=== PATIENT | female | born 1980 | race Caucasian/White ===

== ENCOUNTER 2023-01-23 17:12 | Emergency (ER) | payer MEDICARE, OTHER ==
[2023-01-23 17:36] LABS: Basophils % (A) 1 %; Eosinophils % (A) 1 %; HCT 42.7 % (34.0-46.0); HGB 13.9 gm/dL (11.4-16.0); Lymphocytes # (A) 2.5 k/uL (1.0-4.8); Lymphocytes % (A) 34 %; MCH 31.5 pg (25.0-35.0); MCHC 32.5 g/dL (31.0-37.0); Mean Platelet Volume 7.5; Monocytes # (A) 0.5 k/uL (0-1.0); Monocytes % (A) 7 %; Neutrophils % (A) 55 %; Platelet Count 246 k/uL (150-450); RDW 12.4 % (11.5-15.5); WBC 7.2 k/uL (3.8-10.6)
[2023-01-23 17:45] LABS: Appearance,Urine Clear (Clear); Bilirubin,Urine Negative (Negative); Blood,Urine Negative (Negative); Glucose,Urine (UA) Negative (Negative); Ketones,Urine 2+ (Negative); Leukocyte Esterase,Urine Negative (Negative); Mucus,Urine Many /hpf; Nitrite,Urine Negative (Negative); Protein,Urine 1+ (Negative); RBC,Urine 2 /hpf (0-5); Squamous Epithelial Cell,Urine 1 /hpf (0-4); WBC,Urine 1 /hpf (0-5)
[2023-01-23 17:47] LABS: Color,Urine Yellow
[2023-01-23 17:50] LABS: ALT 21 U/L (4-34); AST 28 U/L (14-36); African American GFR (CKD) >90 (>60 ml/min/1.73 sqM); Albumin 4.3 g/dL (3.5-5.0); Alkaline Phosphatase 86 U/L (38-126); Anion Gap 10 mmol/L; Blood Urea Nitrogen 28 mg/dL (7-17); Calcium 9.8 mg/dL (8.4-10.2); Carbon Dioxide 26 mmol/L (22-30); Chloride 111 mmol/L (98-107); Glucose 125 mg/dL (74-99); Non-African American GFR(CKD) >90 (>60 ml/min/1.73 sqM); Potassium 4.7 mmol/L (3.5-5.1); Sodium 147 mmol/L (137-145); Total Bilirubin 0.5 mg/dL (0.2-1.3); Total Protein 7.8 g/dL (6.3-8.2)
[2023-01-23 18:37] LABS: Carbamazepine (Tegretol) 3.4 ug/mL
[2023-01-23 18:39] LABS: Valproic Acid (Depakene) 45.7 ug/mL
--- NOTE | 2023-01-23 18:52 | CT ---
EXAMINATION TYPE: CT brain wo con DATE OF EXAM: 01/23/2023 COMPARISON: None. HISTORY: increased AMS CT DLP: 2243.2 mGycm. Automated Exposure Control for Dose Reduction was Utilized. TECHNIQUE: CT scan of the head is performed without contrast. FINDINGS: There is no acute intracranial hemorrhage, mass effect, or midline shift identified. The ventricles and sulci are within normal limits in size. Pineda-white matter differentiation is maintai karina The globes are intact and the visualized sinuses are clear. IMPRESSION: No acute intracranial hemorrhage, mass effect, or midline shift is seen. Unremarkable st udy.
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
[2023-01-23] MEDS ORDERED: NON FORMULARY DRUG (Midazolam [Nayzilam] 5 MG/0.1 ML Each) MISCELLANE PRN (21:24)
[2023-01-24] MEDS ORDERED: LORazepam 2 MG/ML INJ IV STA (05:57)
[2023-01-24] MEDS ORDERED: OLANZapine 10 MG TAB PO SCH (07:00)
[2023-01-24] MEDS ORDERED: LEVOTHYROXINE 50 MCG TAB PO SCH (07:00)
[2023-01-24] MEDS ORDERED: QUEtiapine 100 MG TAB PO SCH ×2 (07:00→20:00)
[2023-01-24] MEDS ORDERED: DIVALPROEX 500 MG TABLET.DR PO SCH ×2 (07:00→20:00)
[2023-01-24] MEDS ORDERED: clonazePAM 0.5 MG TAB PO SCH (07:00)
[2023-01-24] MEDS ORDERED: SERTRALINE 100 MG TAB PO SCH (07:00)
[2023-01-24] MEDS ORDERED: carBAMazepine 400 MG TAB.ER.12H PO SCH (07:00)
[2023-01-24] MEDS ORDERED: carBAMazepine 100 MG TAB.ER.12H PO SCH (07:00)
[2023-01-24] MEDS ORDERED: PANTOPRAZOLE 40 MG TABLET PO SCH (07:30)
[2023-01-24 13:04] VITALS: RESP 16
[2023-01-24 15:00] VITALS: BP 130/68; PULSE 76; TEMP 98
[2023-01-24] MEDS ORDERED: MELATONIN 3 MG TABLET PO SCH (20:00)
== END 2023-01-24 15:01 | disposition home or self-care (01) ==
LOC: SUPCPDRO 17:12 → EC 17:12 → EEVIPCON 17:12 → EC 01-24 15:01
DX: R41.82 Altered mental status, unspecified (principal)
CPT/HCPCS: 82075; 36415; 80156; 80164; 80053; 84443; 85025; 81001; 81025; 70450; 99285; 96374; J2060

== ENCOUNTER 2023-03-18 23:02 | Emergency (ER) | payer MEDICARE, OTHER ==
[2023-03-18 23:24] VITALS: BP 112/78; PULSE 136; RESP 22; TEMP 98
[2023-03-18] MEDS ORDERED: LORazepam 2 MG/ML INJ IM STA (23:52)
[2023-03-18] MEDS ORDERED: HALOPERIDOL LACTATE 5 MG/ML 1 ML VIAL IM STA (23:52)
--- NOTE | 2023-03-19 00:26 | ED ---
General Adult HPI - General Chief complaint: Fall Stated complaint: Fall, Head Injury Time Seen by Provider: 03/18/23 23:13 Source: patient, RN notes reviewed Mode of arrival: ambulatory Limitations: no limitations - History of Present Illness Initial comments: 42-year-old female with past medical history significant for cognitive delay and seizure disorder presents the emergency department with a chief complaint of fall. Patient court messenger reports that the patient fell from ground level and hit her left side of her face. She denies any loss of consciousness she denies any anticoagulant use. Patient is nonverbal and therefore most of the history was obtained by the court messenger. She is alert and oriented to self which is her baseline. - Related Data Home Medications Medication Instructions Recorded Confirmed Baclofen 5 mg PO BID@0600,1700 01/23/23 01/23/23 Cranberry Fruit Concentrate [Azo 250 mg PO DAILY@159901/23/23 01/23/23 Cranberry] Divalproex Sodium [Depakote] 1,000 mg PO HS@199901/23/23 01/23/23 Divalproex Sodium [Depakote] 500 mg PO DAILY@59901/23/23 01/23/23 Fluticasone Nasal [place] [Flonase 1 spr EA NOSTRIL DAILY 01/23/23 01/23/23 Nasal [place]] Levothyroxine Sodium [Synthroid] 50 mcg PO AC-BRKFST@59901/23/23 01/23/23 Melatonin 3 mg PO HS@199901/23/23 01/23/23 Midazolam [Nayzilam] 5 mg NASAL DIRECTED PRN 01/23/23 01/23/23 Multivitamins, Thera Liquid 15 ml PO DAILY@0601/23/23 01/23/23 [Theragran Liquid (formulary)] OLANZapine 20 mg PO DAILY@59901/23/23 01/23/23 Pantoprazole [Protonix] 40 mg PO AC-BID@0600,1600 01/23/23 01/23/23 QUEtiapine FUMARATE [SEROquel] 300 mg PO HS@199901/23/23 01/23/23 QUEtiapine [SEROquel] 100 mg PO DAILY@59901/23/23 01/23/23 Sertraline [Zoloft] 100 mg PO DAILY@0600 01/23/23 01/23/23 Triamcinolone 0.1% Cream [Kenalog 1 applic TOPICAL BID PRN 01/23/23 01/23/23 0.1% Cream] carBAMazepine [TEGretol XR] 100 mg PO BID@0600,1700 01/23/23 01/23/23 carBAMazepine [TEGretol XR] 400 mg PO BID@0600,1700 01/23/23 01/23/23 clonazePAM 0.5 mg PO TID@0700,1600,2000 01/23/23 01/23/23 polyethylene glycoL 3350 [Miralax] 10 gm PO W/LUNCH@1200 01/23/23 01/23/23 Allergies Allergy/AdvReac Type Severity Reaction Status Date / Time No Known Allergies Allergy Verified 01/23/23 17:56 Review of Systems ROS Statement: Those systems with pertinent positive or pertinent negative responses have been documented in the HPI. ROS Other: All systems not noted in ROS Statement are negative. Past Medical History Past Medical History: Seizure Disorder Additional Past Medical History / Comment(s): developmental delay, nonverbal History of Any Multi-Drug Resistant Organisms: None Reported Past Surgical History: Unable to Obtain Past Psychological History: Unable to Obtain Smoking Status: Never smoker Past Alcohol Use History: None Reported Past Drug Use History: None Reported General Exam - General Exam Comments Initial Comments: General: Alert, in no acute distress Head: atraumatic normocephalic. Eyes PERRL, EOMI intact, mucous membranes moist, low. Toprol area with mild ecchymosis. No crepitus Extraocular movements remain intact. Respiratory: Lungs clear to auscultation bilaterally Cardiovascular: Heart rate regular rate and rhythm Abdominal: Soft without guarding or rebound Extremities: Normal inspection with full range of motion and normal capillary refill Neuroogic: alert and oriented 1, CN II-XII intact, able to ambulate with steady gait Skin: warm dry and intact with normal color Limitations: no limitations Course Vital Signs 03/18/23 23:04 Temperature 98 F Pulse Rate 136 H Respiratory 22 Rate Blood Pressure 112/78 O2 Sat by Pulse 92 L Oximetry - Reevaluation(s) Reevaluation #1: 03/19/23 00:26 patient reevaluated. Patient continues to pace around room status post medications. 03/19/23 01:06 patient reevaluated. Patient is resting comfortably. Patient will be taken to CT at this time. Medical Decision Making - Medical Decision Making Was pt. sent in by a medical professional or institution (ALDEN Puckett, BAKER APPRENTICE, urgent care, hospital, or jail...) When possible be specific @ -[No] Did you speak to anyone other than the patient for history (EMS, parent, family, police, friend...)? What history was obtained from this source @ -Caregiver Did you review nursing and triage notes (agree or disagree)? Why? @ -[I reviewed and agree with nursing and triage notes] Were old charts reviewed (outside hosp., previous admission, EMS record, old EKG, old radiological studies, urgent care reports/EKG's, jail records)? Report findings @ -[No old charts were reviewed] Differential Diagnosis (chest pain, altered mental status, abdominal pain women, abdominal pain men, vaginal bleeding, weakness, fever, dyspnea, syncope, headache, dizziness, GI bleed, back pain, seizure, CVA, palpatations, mental health, musculoskeletal)? @ -[not applicable] EKG interpreted by me (3pts min.). @ -[As above] X-rays interpreted by me (1pt min.). @ -[None done] CT interpreted by me (1pt min.). @ -To 2 pads, neck, facial bones negative for any intracranial process. U/S interpreted by me (1pt. min.). @ -[None done] What testing was considered but not performed or refused? (CT, X-rays, U/S, labs)? Why? @ -[None] What meds were considered but not given or refused? Why? @ -[None] Did you discuss the management of the patient with other professionals (professionals i.e. ALDEN Puckett, BAKER APPRENTICE, lab, RT, psych nurse, geriatric social worker, corporation lawyer, teacher, youth liaison officer, dependency case manager)? Give summary @ -[No] Was smoking cessation discussed for >3mins.? @ -[No] Was critical care preformed (if so, how long)? @ -[No] Were there social determinants of health that impacted care today? How? (Homelessness, low income, unemployed, alcoholism, drug addiction, transportation, low edu. Level, literacy, decrease access to med. care, longterm, rehab)? @ -[No] Was there de-escalation of care discussed even if they declined (Discuss DNR or withdrawal of care, Hospice)? DNR status @ -[No] What co-morbidities impacted this encounter? (DM, HTN, Smoking, COPD, CAD, Cancer, CVA, ARF, Chemo, Hep., AIDS, mental health diagnosis, sleep apnea, morbid obesity)? @ -[None] Was patient admitted / discharged? Hospital course, mention meds given and route , prescriptions, significant lab abnormalities, going to OR and other pertinent info. @ -Discharged. This is a 42-year-old female who presents to the emergency department for fall. Patient had a thorough history and physical exam performed on the ED. Physical exam is essentially unremarkable. Heart rate regular rate and rhythm, lungs clear to auscultation bilaterally, abdomen soft and nontender. Small area of ecchymosis to the left or edema. No focal neuro deficits upon exam. Patient's oral corporation lawyer and oriented 1 which is her baseline. Patient had imaging performed which was negative I discussed the results in detail with the patient and patient's caregiver who verbalized understanding and all questions were addressed. She will be discharged in stabl e condition with recommend close follow-up with PCP in 1-2 days. Case discussed with BLANE Causey who agrees with plan of care Undiagnosed new problem with uncertain prognosis? @ -[No] Drug Therapy requiring intensive monitoring for toxicity (Heparin, Nitro, Insulin, Cardizem)? @ -[No] Were any procedures done? @ -[No] Diagnosis/symptom? @ -Fall Acute, or Chronic, or Acute on Chronic? @ -Acute Uncomplicated (without systemic symptoms) or Complicated (systemic symptoms)? @ -Uncomplicated Side effects of treatment? @ -[No] Exacerbation, Progression, or Severe Exacerbation? @ -[No] Poses a threat to life or bodily function? How? (Chest pain, [place], [place], pneumonia, PE, COPD, DKA, ARF, appy, cholecystitis, CVA, Diverticulitis, Homicidal, Suicidal, threat to staff... and all critical care pts) @ -Low likelihood Disposition Clinical Impression: Fall Disposition: HOME SELF-CARE Condition: Stable Instructions (If sedation given, give patient instructions): Fall Prevention (ED) Additional Instructions: Please return to the emergency department if symptoms worsen or persist Is patient prescribed a controlled substance at d/c from ED?: No Referrals: Morgan Nino DO [Primary Care Provider] - 1-2 days Time of Disposition: 02:12
--- NOTE | 2023-03-19 01:59 | CT ---
EXAM: CT Head Without Intravenous Contrast CLINICAL HISTORY: ITS.REASON CT Reason: pain TECHNIQUE: Axial computed tomography images of the head/brain without intravenous contrast. CTDI is 25.8 mGy and DLP is 744.5 mGy-cm. This CT exam was performed using one or more of the following dose reduction techniques: automated exposure control, adjustment of the mA and/or kV according to patient size, and/or use of iterative reconstruction technique. COMPARISON: None. FINDINGS: Brain: No mass effect or acute infarct. No acute hemorrhage. Mild atrophy and chronic, nonspecific white matter disease. Ventricles: No hydrocephalus or midline shift. Bones/joints: No skull fracture. Soft tissues: No scalp hematoma. Sinuses: Clear. Mastoid air cells: No mastoid effusion. IMPRESSION: 1. No acute infarct, bleed, or acute intracranial abnormality. EXAM: CT Cervical Spine Without Intravenous Contrast CLINICAL HISTORY: ITS.REASON CT Reason: pain TECHNIQUE: Axial computed tomography images of the cervical spine without intravenous contrast. CTDI is 8.6 mGy and DLP is 221.8 mGy-cm. This CT exam was performed using one or more of the following dose reduction techniques: automated exposure control, adjustment of the mA and/or kV according to patient size, and/or use of iterative reconstruction technique. COMPARISON: No relevant prior studies available. FINDINGS: Vertebrae: Mild endplate osteophytes, degenerative. No acute fracture. Discs/spinal canal/neural foramina: Mild, diffuse degenerative disc disease. Soft tissues: Unremarkable. IMPRESSION: 1. No fracture or acute bony abnormality.
--- NOTE | 2023-03-19 02:00 | CT ---
EXAM: CT Maxillofacial Without Intravenous Contrast CLINICAL HISTORY: ITS.REASON CT Reason: fall TECHNIQUE: Axial computed tomography images of the face without intravenous contrast. CTDI is 0 mGy and DLP is 0 mGy-cm. This CT exam was performed using one or more of the following dose reduction techniques: automated exposure control, adjustment of the mA and/or kV according to patient size, and/or use of iterative reconstruction technique. Mild to moderate motion artifact. COMPARISON: No relevant prior studies available. FINDINGS: Bones/joints: No acute fracture. Soft tissues: Unremarkable. Orbits: Unremarkable. No retro-orbital hematoma or proptosis. No globe injury. Sinuses: Clear. No air-fluid levels. IMPRESSION: 1. No nasal bone, orbital wall or facial fracture.
[2023-03-19] MEDS ORDERED: DIPH,PERTUS(ACELL)TETVAC-LF 0.5 ML VIAL IM ONE (02:12)
== END 2023-03-19 02:39 | disposition home or self-care (01) ==
LOC: EC 23:02
DX: S09.90XA Unspecified injury of head, initial encounter (principal); G40.909 Epilepsy, unspecified, not intractable, without status epilepticus; Z79.899 Other long term (current) drug therapy; Z23 Encounter for immunization; W01.118A Fall on same level from slipping, tripping and stumbling with subsequent striking against other sharp object, initial encounter
CPT/HCPCS: 72125; 70486; 70450; 90715; 99284; 96372 ×2; 90471; J2060; J1630